=== PATIENT | female | born 1955 | race Two or more races ===

== ENCOUNTER 2023-03-19 07:30 | Outpatient (CLI) | payer OTHER ==
[~2023-03-19 07:30] MED LIST: DIOVAN160 M1; HYZAAR 50/12.51 TAB PO; SYNTHROID125 MCG PO; SYNTHROID150 MCG; TESSALON200 MG PO
== END 2023-03-19 07:32 | disposition home or self-care (01) ==
LOC: NUCLEAR 07:30
PROVIDERS: ATTEND Internal Medicine Cardiovascular Disease
DX: I25.10 Atherosclerotic heart disease of native coronary artery without angina pectoris (principal)
CPT/HCPCS: 78452; 93017; A9500; J0153